=== PATIENT | female | born 1985 | race Caucasian/White ===

== ENCOUNTER 2018-01-11 19:58 | Emergency (ER) | payer SELFPAY ==
[~2018-01-11] VITALS: Ht 157.5 cm; Wt 70.5 kg
[2018-01-11 20:28] VITALS: BP 178/98; PULSE 110; RESP 20; TEMP 102.6; O2SAT 98
[2018-01-11] MEDS ORDERED: VENTAER INH (20:45)
[2018-01-11] MEDS ORDERED: SODIUM CHLORIDE 0.9% FLUSH 10 ML FLUSH IVF PRN (20:45)
[2018-01-11] MEDS ORDERED: SODIUM CHLOR 0.9% 1000 ML INJ 1,000 ML IV ONE (20:45)
[2018-01-11] MEDS ORDERED: ACETAMINOPHEN 325 MG TAB PO ONE (20:45)
--- NOTE | 2018-01-11 21:03 | RADRPT ---
EXAM DATE/TIME: 01/11/2018 20:56 [facility] COMPARISON: No previous studies available for comparison. INDICATIONS : Chest pain. MEDICAL HISTORY : Asthma SURGICAL HISTORY : None. ENCOUNTER: Initial ACUITY: 3 days PAIN SCORE: 10/10 LOCATION: Bilateral chest FINDINGS: PA and lateral views of the chest demonstrate the lungs to be symmetrically aerated without evidence of mass, infiltrate or effusion. The cardiomediastinal contours are unremarkable. Osseous structure s are intact. CONCLUSION: No evidence of acute cardiopulmonary disease. Alpesh Aranda MD on January 11, 2018 at 21:00 Board Certified Radiologist. This report was verified electronically.
--- NOTE | 2018-01-11 21:13 | PD ---
HPI Chief Complaint: Cold / Flu Symptoms Time Seen by Provider: 20:39 Travel History International Travel<30 days: No Contact w/Intl Traveler<30days: No Traveled to known affect area: No History of Present Illness HPI Patient is a 32-year-old female presents emergency department with a 2 day history of cough congestion body aches nausea without vomiting. Patient also is noted to be febrile here in the emergency department. She states her uncle is been sick with similar symptoms but she has not had a lot of contact with him. States symptoms have provoked her asthma as well and she has been taking her uncles nebulizer as well as her inhaler. Denies any chest pain denies any sputum production, endorses a mild headache. She states symptoms are moderate, over the past 2 days, constant, gradually worsening, associated signs and symptoms as above PFSH Past Medical History Hx Anticoagulant Therapy: Yes (ASA) Asthma: Yes Medical other: Yes (DVT LLE ) Respiratory: Yes (Asthma) Tetanus Vaccination: < 5 Years Influenza Vaccination: No ?: Not LMP: 01/11 Past Surgical History Appendectomy: Yes Other Surgery: Yes (Facial surgery) Social History Alcohol Use: Yes (rarely) Tobacco Use: Yes (1/2 PPD) Substance Use: No Allergies-Medications (Allergen,Severity, Reaction): Coded Allergies: No Known Drug Allergies (Verified Allergy, Unknown, 01/11/18) Reported Meds & Prescriptions Reported Meds & Active Scripts Active Zofran (Ondansetron HCl) 4 Mg Tab 4 Mg PO Q6HR PRN Reported Ventolin Hfa 18 GM Inh (Albuterol Sulfate) 90 Mcg/Act Aer 2 Puff INH Q4-6H PRN Review of Systems Except as stated in HPI: all other systems reviewed are Neg Physical Exam Narrative GENERAL: Well-developed well-nourished no obvious distress. Patient appears nontoxic. SKIN: Skin is clammy, euthermic to touch. HEAD: Atraumatic. Normocephalic. EYES: Pupils equal and round. No scleral icterus. No injection or drainage. ENT: No nasal bleeding or discharge. Mucous membranes pink and moist. TMs clear bilaterally, oropharynx mildly erythematous but no edema. Uvula midline NECK: Trachea midline. No JVD. CARDIOVASCULAR: Regular rhythm with mild tachycardia. No murmur appreciated. RESPIRATORY: No accessory muscle use. Clear to auscultation. Breath sounds equal bilaterally. GASTROINTESTINAL: Abdomen soft, non-tender, nondistended. Hepatic and splenic margins not palpable. MUSCULOSKELETAL: No obvious deformities. No clubbing. No cyanosis. No edema. NEUROLOGICAL: Awake and alert. No obvious cranial nerve deficits. Motor grossly within normal limits. Normal speech. PSYCHIATRIC: Appropriate mood and affect; insight and judgment normal. Data Data Last Documented VS Vital Signs Date Time Temp Pulse Resp B/P (MAP) Pulse Ox O2 Delivery O2 Flow Rate FiO2 01/11/18 21:50 99.8 93 18 136/62 (86) 96 Room Air Orders Orders Basic Metabolic Panel (Bmp) (01/11/18 20:44) Complete Blood Count With Diff (01/11/18 20:44) Sodium Chloride 0.9% Flush (Ns Flush) (01/11/18 20:45) Chest, Pa & Lat (01/11/18 20:44) Ed Urine Pregnancytest Poc (01/11/18 20:44) Influenzae A/B Antigen (01/11/18 20:44) Sodium Chlor 0.9% 1000 Ml Inj (Ns 1000 M (01/11/18 20:45) Acetaminophen (Tylenol) (01/11/18 20:45) Ed Discharge Order (01/11/18 23:26) Labs Laboratory Tests Test 01/11/18 21:10 White Blood Count 6.0 TH/MM3 Red Blood Count 3.93 MIL/MM3 Hemoglobin 14.0 GM/DL Hematocrit 39.3 % Mean Corpuscular Volume 100.0 FL Mean Corpuscular Hemoglobin 35.5 PG Mean Corpuscular Hemoglobin Concent 35.5 % Red Cell Distribution Width 11.7 % Platelet Count 116 TH/MM3 Mean Platelet Volume 10.6 FL Neutrophils (%) (Auto) 76.6 % Lymphocytes (%) (Auto) 12.0 % Monocytes (%) (Auto) 10.5 % Eosinophils (%) (Auto) 0.5 % Basophils (%) (Auto) 0.4 % Neutrophils # (Auto) 4.6 TH/MM3 Lymphocytes # (Auto) 0.7 TH/MM3 Monocytes # (Auto) 0.6 TH/MM3 Eosinophils # (Auto) 0.0 TH/MM3 Basophils # (Auto) 0.0 TH/MM3 CBC Comment DIFF FINAL Differential Comment Blood Urea Nitrogen 4 MG/DL Creatinine 0.70 MG/DL Random Glucose 106 MG/DL Calcium Level 8.9 MG/DL Sodium Level 135 MEQ/L Potassium Level 3.3 MEQ/L Chloride Level 103 MEQ/L Carbon Dioxide Level 22.4 MEQ/L Anion Gap 10 MEQ/L Estimat Glomerular Filtration Rate 98 ML/MIN [facility] Medical Decision Making Medical Screen Exam Complete: Yes Emergency Medical Condition: Yes Differential Diagnosis Influenza, pneumonia, asthma exacerbation, viral syndrome. Narrative Course Patient room to the emergency department, defervesced quite well with fluids and Tylenol. Also given Zofran. She is feeling much better. Basic labs are reassuring, UPT negative, chest x-ray negative. Patient did take her inhaler once in the emergency department but her lungs remained clear. She did not alert myself in her nursing to this until my repeat evaluation. She appears much improved. Discussed with her signs and symptoms that should prompt revisit to the ER, symptomatic management of her fever at home, discussed follow -up with a primary care physician Diagnosis Primary Impression: Fever Additional Impression: URI (upper respiratory infection) Med/Other Pt SpecificInfo: Prescription(s) given Scripts Ondansetron (Zofran) 4 Mg Tab 4 MG PO Q6HR Y for NAUSEA OR VOMITING, #20 TAB 0 Refills Prov: Edi Veloz MD 01/11/18 Disposition: 01 DISCHARGE HOME Condition: Stable Edi Veloz MD Jan 11, 2018 21:13
[2018-01-11 21:28] LABS: AUTOMATED NEUTROPHIL # 4.6 TH/MM3 (1.8-7.7); BASOPHIL % 0.4 % (0.0-2.0); EOSINOPHIL % 0.5 % (0.0-4.0); HEMATOCRIT 39.3 % (35.0-46.0); LYMPHOCYTE # 0.7 TH/MM3 (1.0-4.8); MEAN CORPUSCULAR HEMOGLOBIN 35.5 PG (27.0-34.0); MEAN CORPUSCULAR HGB CONC 35.5 % (32.0-36.0); MEAN PLATELET VOLUME 10.6 FL (7.0-11.0); MONO % 10.5 % (0.0-8.0); MONOCYTE # 0.6 TH/MM3 (0-0.9); NEUT % 76.6 % (16.0-70.0); PLATELET COUNT 116 TH/MM3 (150-450); RED BLOOD COUNT 3.93 MIL/MM3 (4.00-5.30); RED CELL DISTRIBUTION WIDTH 11.7 % (11.6-17.2)
[2018-01-11 21:50] VITALS: BP 136/62; PULSE 93; RESP 18; TEMP 99.8; O2SAT 96
[2018-01-11 21:50] LABS: BICARBONATE 22.4 MEQ/L (21.0-32.0); CALCIUM 8.9 MG/DL (8.5-10.1); CREATININE 0.7 MG/DL (0.50-1.00)
[2018-01-11] MEDS ORDERED: ZOFR4TAB PO (23:30)
== END 2018-01-12 01:40 | disposition home or self-care (01) ==
LOC: NEPD 19:58
DX: J06.9 Acute upper respiratory infection, unspecified (principal); R51 Headache; J45.909 Unspecified asthma, uncomplicated; F17.200 Nicotine dependence, unspecified, uncomplicated; Z86.718 Personal history of other venous thrombosis and embolism; Z79.51 Long term (current) use of inhaled steroids
CPT/HCPCS: 71046; 80048; 84703; 85025; 87804; 96360; 99284; J7030

== ENCOUNTER 2018-01-14 01:35 | Inpatient (IN) | payer SELFPAY ==
[2018-01-14] VITALS (9 sets, daily range): BP systolic 132–172; BP diastolic 58–83; PULSE 78–115; RESP 17–20; TEMP 97.9–100.6; O2SAT 95–98
[~2018-01-14] VITALS: Ht 157.5 cm; Wt 70.0 kg
[~2018-01-14 01:35] MED LIST: VENTAER INH; ZOFR4TAB PO
[2018-01-14] MEDS ORDERED: SODIUM CHLOR 0.9% 1000 ML INJ 1,000 ML IV SCH (02:25)
[2018-01-14] MEDS ORDERED: SODIUM CHLORIDE 0.9% FLUSH 10 ML FLUSH IV FLUSH PRN ×2 (02:30→04:30)
[2018-01-14] MEDS ORDERED: methylPREDNISolone SOD SUCC 125 MG/2 ML VIAL IV PUSH ONE (02:30)
[2018-01-14] MEDS ORDERED: diphenhydrAMINE HCL 50 MG/ML VIAL IV PUSH ONE (02:30)
[2018-01-14] MEDS ORDERED: FAMOTIDINE 20 MG/2 ML VIAL IV PUSH ONE (02:30)
[2018-01-14] MEDS ORDERED: ONDANSETRON HCL 4 MG/2 ML VIAL IVP ONE (02:30)
[2018-01-14] MEDS ORDERED: MORPHINE SULFATE 4 MG/ML INJ IV PUSH ONE (02:30)
[2018-01-14] MEDS ORDERED: IOHEXOL 350 MG/ML 10 ML VIAL (for RAD DIAG) IVCONTRAST ONE (02:50)
[2018-01-14 02:59] LABS: AUTOMATED NEUTROPHIL # 5.3 TH/MM3 (1.8-7.7); BASOPHIL % 0.2 % (0.0-2.0); EOSINOPHIL % 0.6 % (0.0-4.0); HEMATOCRIT 38.1 % (35.0-46.0); HEMOGLOBIN 13.5 GM/DL (11.6-15.3); LYMPH % 10.7 % (9.0-44.0); LYMPHOCYTE # 0.7 TH/MM3 (1.0-4.8); MEAN CORPUSCULAR HEMOGLOBIN 35.1 PG (27.0-34.0); MEAN CORPUSCULAR HGB CONC 35.5 % (32.0-36.0); MEAN PLATELET VOLUME 10.5 FL (7.0-11.0); MONOCYTE # 0.7 TH/MM3 (0-0.9); NEUT % 78.5 % (16.0-70.0); PLATELET COUNT 138 TH/MM3 (150-450); RED BLOOD COUNT 3.85 MIL/MM3 (4.00-5.30); WHITE BLOOD COUNT 6.7 TH/MM3 (4.0-11.0)
[2018-01-14] MEDS ORDERED: RESP: ALBUTEROL 2.5 MG/IPRATROPIUM 0.5 MG NEB (SCH) NEB ONE ×2 (03:00→03:15)
--- NOTE | 2018-01-14 03:03 | RADRPT ---
EXAM DATE/TIME: 01/14/2018 02:47 [facility] COMPARISON: CHEST PA & LAT, January 11, 2018, 20:56. INDICATIONS : Right upper quadrant pain and fever. IV CONTRAST: 97 cc Omnipaque 350 (iohexol) IV ORAL CONTRAST: No oral contrast ingested. RADIATION DOSE: 7.16 CTDIvol (mGy) MEDICAL HISTORY : Asthma SURGICAL HISTORY : Appendectomy. ENCOUNTER: Initial ACUITY: 2 days PAIN SCALE: 6/10 LOCATION: Right upper quadrant abdomen TECHNIQUE: Volumetric scanning of the abdomen and pelvis was performed. Using automated exposure control and ad justment of the mA and/or kV according to patient size, radiation dose was kept as low as reasonably achievable to obtain optimal diagnostic quality images. DICOM format image data is available electro nically for review and comparison. FINDINGS: LOWER LUNGS: Dense consolidation in the medial right lower lung with some peripheral air bronchograms and opacity measuring up to 5.5 cm. The opacity tracks along the right heart border and does come in contact wit h the medial right hemidiaphragm. Patchy areas of non-consolidative infiltrate in the lateral left l ower lung. LIVER: Homogeneous density without lesion. There is no dilation of the biliary tree. No calcified gallston es. SPLEEN: Normal size without lesion. PANCREAS: Within normal limits. KIDNEYS: Normal in size and shape. There is no mass, stone or hydronephrosis. ADRENAL GLANDS: Within normal limits. VASCULAR: There is no aortic aneurysm. BOWEL/MESENTERY: No dilated loops of small or large bowel. No evidence of free fluid. ABDOMINAL WALL: Within normal limits. RETROPERITONEUM: There is no lymphadenopathy. BLADDER: No wall thickening or mass. REPRODUCTIVE: Anteverted uterus. INGUINAL: There is no lymphadenopathy or hernia. MUSCULOSKELETAL: Possible pars defect on the right side of L5. CONCLUSION: 1. Dense consolidation in the medial lower right lung in contact with the medial hemidiaphragm. 2. Patchy areas of non-consolidative infiltrate in the left lower lobe. 3. 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 Lowell Valdes MD on January 14, 2018 at 2:56 Board Certified Radiologist. This report was verified electronically.
[2018-01-14] MEDS ORDERED: AZITHROMYCIN INJ 500 MG in SODIUM CHLOR 0.9% 250 ML INJ 250 ML IV ONE (03:15)
[2018-01-14 03:22] LABS: ALKALINE PHOSPHATASE 82 U/L (45-117); ALT (GPT) 25 U/L (10-53); TOTAL BILIRUBIN ADULT 0.8 MG/DL (0.2-1.0); TOTAL PROTEIN 7.7 GM/DL (6.4-8.2)
--- NOTE | 2018-01-14 03:23 | PD ---
HPI Chief Complaint: Abdominal Pain Time Seen by Provider: 02:16 Travel History International Travel<30 days: No Contact w/Intl Traveler<30days: No Traveled to known affect area: No History of Present Illness HPI The patient is a 32-year-old -[place] female who presents the emergency department with a 2 day history of cough and cold symptoms. The patient was seen in the emergency department several days ago where she had a chest x-ray were performed which was negative and an influenza screen which was negative. The patient was diagnosed with a viral syndrome at that time he was discharged home on Zofran. However, the patient continues to have a productive cough producing green sputum, she now notes increase in nausea and right upper quadrant abdominal pain. She does no vomiting as well as productive cough producing green sputum and occasionally blood within the sputum. She had one episode of diarrhea which has resolved. She denies any lower abdominal pain. Symptoms are moderate. She does note subjective fevers chills, sweats, myalgias , and hives. She denies any change in medications or detergents recently. States when she has the hives she has perioral numbness and tingling. The patient does have a history of reactive airway disease and is requesting duo nebs. PFSH Past Medical History Hx Anticoagulant Therapy: Yes (ASA) Asthma: Yes Diminished Hearing: No Respiratory: Yes (Asthma) Tetanus Vaccination: Unknown Influenza Vaccination: No ?: Not LMP: 01/13/2018 Past Surgical History Appendectomy: Yes Other Surgery: Yes (Facial surgery) Social History Alcohol Use: Yes (rarely) Tobacco Use: No (pt states no since been sick) Substance Use: No Allergies-Medications (Allergen,Severity, Reaction): Coded Allergies: No Known Drug Allergies (Verified Allergy, Unknown, 01/11/18) Reported Meds & Prescriptions Reported Meds & Active Scripts Active Zofran (Ondansetron HCl) 4 Mg Tab 4 Mg PO Q6HR PRN Reported Ventolin Hfa 18 GM Inh (Albuterol Sulfate) 90 Mcg/Act Aer 2 Puff INH Q4-6H PRN Review of Systems Except as stated in HPI: all other systems reviewed are Neg General / Constitutional: Positive: Fever, Chills Cardiovascular: No: Chest Pain or Discomfort Respiratory: Positive: Cough, Shortness of Breath Gastrointestinal: Positive: Nausea, Vomiting, Diarrhea, Abdominal Pain Genitourinary: No: Dysuria Skin: Positive Hives Physical Exam Narrative GENERAL: Awake, alert, pleasant 32-year-old female who appears her stated age and is in no acute respiratory distress. SKIN: Focused skin assessment warm/dry. HEAD: Atraumatic. Normocephalic. EYES: Pupils equal and round. No scleral icterus. No injection or drainage. ENT: No nasal bleeding or discharge. Slightly dry mucous membranes. NECK: Trachea midline. No JVD. CARDIOVASCULAR: Regular, tachycardic with a heart rate 115. RESPIRATORY: No accessory muscle use. Few scattered rhonchi in the right base. GASTROINTESTINAL: Abdomen soft, tender to palpation right upper quadrant. No guarding rigidity. MUSCULOSKELETAL: No obvious deformities. No clubbing. No cyanosis. No edema. NEUROLOGICAL: Awake and alert. No obvious cranial nerve deficits. Motor grossly within normal limits. Normal speech. PSYCHIATRIC: Appropriate mood and affect; insight and judgment normal. Data Data Last Documented VS Vital Signs Date Time Temp Pulse Resp B/P (MAP) Pulse Ox O2 Delivery O2 Flow Rate FiO2 01/14/18 01:58 100.6 115 18 172/83 (112) 96 Orders Orders Complete Blood Count With Diff (01/14/18 02:25) Comprehensive Metabolic Panel (01/14/18 02:25) Lipase (01/14/18 02:25) Lactic Acid (01/14/18 02:25) Urinalysis - C+S If Indicated (01/14/18 02:25) Ct Abd/Pel W Iv Contrast(Rout) (01/14/18 02:25) Iv Access Insert/Monitor (01/14/18 02:25) Ecg Monitoring (01/14/18 02:25) Oximetry (01/14/18 02:25) Morphine Inj (Morphine Inj) (01/14/18 02:30) Ondansetron Inj (Zofran Inj) (01/14/18 02:30) Sodium Chlor 0.9% 1000 Ml Inj (Ns 1000 M (01/14/18 02:25) Sodium Chloride 0.9% Flush (Ns Flush) (01/14/18 02:30) Famotidine Inj (Pepcid Inj) (01/14/18 02:30) Methylprednisolone So Succ Inj (Solumedr (01/14/18 02:30) Diphenhydramine Inj (Benadryl Inj) (01/14/18 02:30) Iohexol 350 Inj (Omnipaque 350 Inj) (01/14/18 02:50) Albuterol-Ipratropium Neb (Duoneb Neb) (01/14/18 03:00) Albuterol-Ipratropium Neb (Duoneb Neb) (01/14/18 03:15) Azithromycin Inj (Zithromax Inj) (01/14/18 03:15) Potassium Chloride (Kcl) (01/14/18 04:15) Admit Order (Ed Use Only) (01/14/18 04:20) Labs Laboratory Tests Test 01/14/18 02:29 01/14/18 02:42 White Blood Count 6.7 TH/MM3 Red Blood Count 3.85 MIL/MM3 Hemoglobin 13.5 GM/DL Hematocrit 38.1 % Mean Corpuscular Volume 99.0 FL Mean Corpuscular Hemoglobin 35.1 PG Mean Corpuscular Hemoglobin Concent 35.5 % Red Cell Distribution Width 12.0 % Platelet Count 138 TH/MM3 Mean Platelet Volume 10.5 FL Neutrophils (%) (Auto) 78.5 % Lymphocytes (%) (Auto) 10.7 % Monocytes (%) (Auto) 10.0 % Eosinophils (%) (Auto) 0.6 % Basophils (%) (Auto) 0.2 % Neutrophils # (Auto) 5.3 TH/MM3 Lymphocytes # (Auto) 0.7 TH/MM3 Monocytes # (Auto) 0.7 TH/MM3 Eosinophils # (Auto) 0.0 TH/MM3 Basophils # (Auto) 0.0 TH/MM3 CBC Comment DIFF FINAL Differential Comment Blood Urea Nitrogen 2 MG/DL Creatinine 0.58 MG/DL Random Glucose 110 MG/DL Total Protein 7.7 GM/DL Albumin 3.2 GM/DL Calcium Level 8.7 MG/DL Alkaline Phosphatase 82 U/L Aspartate Amino Transf (AST/SGOT) 25 U/L Alanine Aminotransferase (ALT/SGPT) 25 U/L Total Bilirubin 0.8 MG/DL Sodium Level 138 MEQ/L Potassium Level 3.0 MEQ/L Chloride Level 102 MEQ/L Carbon Dioxide Level 24.8 MEQ/L Anion Gap 11 MEQ/L Estimat Glomerular Filtration Rate 122 ML/MIN Lipase 75 U/L Lactic Acid Level 1.2 mmol/L MDM Medical Decision Making Medical Screen Exam Complete: Yes Emergency Medical Condition: Yes Medical Record Reviewed: Yes Interpretation(s) CT the abdomen and pelvis reveals dense consolidation in the medial lower right lung and contact with the medial hemidiaphragm. Patchy areas of non- consolidative infiltrate in the left lower lobe. 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 Laboratory Tests Test 01/14/18 02:29 01/14/18 02:42 White Blood Count 6.7 TH/MM3 Red Blood Count 3.85 MIL/MM3 Hemoglobin 13.5 GM/DL Hematocrit 38.1 % Mean Corpuscular Volume 99.0 FL Mean Corpuscular Hemoglobin 35.1 PG Mean Corpuscular Hemoglobin Concent 35.5 % Red Cell Distribution Width 12.0 % Platelet Count 138 TH/MM3 Mean Platelet Volume 10.5 FL Neutrophils (%) (Auto) 78.5 % Lymphocytes (%) (Auto) 10.7 % Monocytes (%) (Auto) 10.0 % Eosinophils (%) (Auto) 0.6 % Basophils (%) (Auto) 0.2 % Neutrophils # (Auto) 5.3 TH/MM3 Lymphocytes # (Auto) 0.7 TH/MM3 Monocytes # (Auto) 0.7 TH/MM3 Eosinophils # (Auto) 0.0 TH/MM3 Basophils # (Auto) 0.0 TH/MM3 CBC Comment DIFF FINAL Differential Comment Blood Urea Nitrogen 2 MG/DL Creatinine 0.58 MG/DL Random Glucose 110 MG/DL Total Protein 7.7 GM/DL Albumin 3.2 GM/DL Calcium Level 8.7 MG/DL Alkaline Phosphatase 82 U/L Aspartate Amino Transf (AST/SGOT) 25 U/L Alanine Aminotransferase (ALT/SGPT) 25 U/L Total Bilirubin 0.8 MG/DL Sodium Level 138 MEQ/L Potassium Level 3.0 MEQ/L Chloride Level 102 MEQ/L Carbon Dioxide Level 24.8 MEQ/L Anion Gap 11 MEQ/L Estimat Glomerular Filtration Rate 122 ML/MIN Lipase 75 U/L Lactic Acid Level 1.2 mmol/L Differential Diagnosis Differential diagnosis includes influenza, viral syndrome, pneumonia, bronchitis , cholecystitis, gastroenteritis. Narrative Course IV was established, labs are drawn and sent, and the patient was placed on cardiac telemetry monitoring and continuous pulse oximetry monitoring. I reviewed the patient's previous emergency department visit, chest x-ray was unremarkable that time a test was negative. The patient does have right upper quadrant abdominal pain, tachycardia, with nausea and vomiting. Therefore, CT the abdomen and pelvis was performed. CT the abdomen and pelvis does reveal a right lower lobe pneumonia with patchy consolidative infiltrate and left lower pneumonia. Therefore, the patient was administered several duo nebs, steroids, IV fluids, and Zithromax. The patient's white count was normal , lactic acid normal. The patient felt improvement with the DuoNeb, however, symptoms returned. She was administered 2 more duo nebs with mild relief. However, she still was tachycardic with a heart rate of 10/02/2000 20. I had a discussion with the patient regarding bilateral pneumonia and her nausea and vomiting. After discussion it was agreed the patient would be admitted for her bilateral pneumonia with nausea and vomiting for duo nebs, IV antibiotics, and IV hydration. Sepsis Criteria SIRS Criteria (2 or more): Heart rate over 90 Physician Communication Physician Communication I discussed the patient with Dr. Iqbal who agrees with admission. Diagnosis Primary Impression: Pneumonia Qualified Codes: J18.1 - Lobar pneumonia, unspecified organism Admitting Information Admitting Physician Requests: Admit Condition: Stable Octavio Calderon MD Jan 14, 2018 03:23
[2018-01-14 03:29] LABS: ALBUMIN 3.2 GM/DL (3.4-5.0); AST (GOT) 25 U/L (15-37); BICARBONATE 24.8 MEQ/L (21.0-32.0); BLOOD UREA NITROGEN 2 MG/DL (7-18); CALCIUM 8.7 MG/DL (8.5-10.1); CHLORIDE 102 MEQ/L (98-107); CREATININE 0.58 MG/DL (0.50-1.00); GLOMERULAR FILTRATION RATE 122 ML/MIN (>89); GLUCOSE,RANDOM 110 MG/DL (74-106); SODIUM (NA) 138 MEQ/L (136-145)
[2018-01-14] MEDS ORDERED: POTASSIUM CHLORIDE 20 MEQ CONTROLLED RELEASE TAB PO ONE ×2 (04:15→07:45)
[2018-01-14] MEDS ORDERED: ONDANSETRON HCL 4 MG/2 ML VIAL IVP PRN (04:30)
[2018-01-14] MEDS ORDERED: SENNOSIDES 8.6 MG TAB PO PRN (04:30)
[2018-01-14] MEDS ORDERED: BISACODYL 10 MG SUPP RECTAL PRN (04:30)
[2018-01-14] MEDS ORDERED: LACTULOSE SYRUP 20 GM/30 ML CUP PO PRN (04:30)
[2018-01-14] MEDS ORDERED: MAGNESIUM HYDROXIDE SUSP 30 ML CUP PO PRN (04:30)
[2018-01-14] MEDS ORDERED: ACETAMINOPHEN/HYDROcodone 325 MG/10 MG TAB PO PRN (04:30)
[2018-01-14] MEDS ORDERED: ACETAMINOPHEN/HYDROcodone 325 MG/5 MG TAB PO PRN (04:30)
[2018-01-14] MEDS ORDERED: ACETAMINOPHEN 325 MG TAB PO PRN (04:30)
--- NOTE | 2018-01-14 04:34 | HHI.HP ---
[facility] No Primary Care Physician Admission Diagnosis Bilateral pneumonia, nausea/vomiting Diagnoses: (1) PNA (pneumonia) Diagnosis: Principal (2) Asthma Diagnosis: Principal (3) Hypokalemia Diagnosis: Principal (4) Tobacco abuse Diagnosis: Principal Travel History International Travel<30 Days: No Contact w/Intl Traveler <30 Da: No Traveled to Known Affected Are: No History of Present Illness This is a 32-year-old female with a PMH of Asthma and Tobacco Abuse who presented to the ER with complaints of SOB in addition to productive cough w/ green-colored sputum and nausea/vomiting. Seen in ER on 01/11/18 for similar complaints, noted to have Temp 102.6, however no leukocytosis and CXR w/o acute findings, was d/c'd home w/ Zofran prn. Returns now w/ ongoing SOB and cough in addition to RUQ pain. Denies diarrhea, but reports generalized malaise and myalgias. On arrival, BP 172/83, HR 115, O2 sat 96% on RA, Temp 100.6. CBC at baseline. Chemistry unremarkable except for K+ 3.0. CT Abdomen/Pelvis with dense consolidation medial lower right lung and patchy non-consolidative infiltrate left lower lobe. S/p Solu-Medrol, DuoNeb, Rocephin/Zithro in ER w/ some improvement. Review of Systems Except as stated in HPI: all other systems reviewed are Neg ROS: 14 point review of systems otherwise negative. Past Family Social History Past Medical History PMH: Asthma and Tobacco Abuse Past Surgical History PAST SURGICAL HISTORY: Appendectomy, Facial Surgery Allergies: Coded Allergies: No Known Drug Allergies (Verified Allergy, Unknown, 01/11/18) Family History PAST FAMILY HISTORY: Reviewed. No h/o DM or CAD Social History PAST SOCIAL HISTORY: Occasional alcohol, positive for tobacco however not since she has been sick. Negative for drugs. Physical Exam Vital Signs Vital Signs Date Time Temp Pulse Resp B/P (MAP) Pulse Ox O2 Delivery O2 Flow Rate FiO2 01/14/18 01:58 100.6 115 18 172/83 (112) 96 Physical Exam PE: GENERAL: Pleasant young female in no acute distress. Mother at bedside. HEENT: PERRLA, EOMI. No scleral icterus or conjunctival pallor. No lid lag or facial droop. CARDIOVASCULAR: Regular rate and rhythm. No obvious murmurs to auscultation. No chest tenderness to palpation. RESPIRATORY: No obvious rhonchi or wheezing. Clear to auscultation. Breath sounds equal bilaterally. GASTROINTESTINAL: Abdomen soft, non-tender, nondistended. BS normal. MUSCULOSKELETAL: Extremities without clubbing, cyanosis, or edema. No obvious deformities. NEUROLOGICAL: Awake, alert and oriented x4. No focal neurologic deficits. Moving both upper and lower extremities spontaneously. Laboratory Laboratory Tests Test 01/14/18 02:29 01/14/18 02:42 White Blood Count 6.7 Red Blood Count 3.85 Hemoglobin 13.5 Hematocrit 38.1 Mean Corpuscular Volume 99.0 Mean Corpuscular Hemoglobin 35.1 Mean Corpuscular Hemoglobin Concent 35.5 Red Cell Distribution Width 12.0 Platelet Count 138 Mean Platelet Volume 10.5 Neutrophils (%) (Auto) 78.5 Lymphocytes (%) (Auto) 10.7 Monocytes (%) (Auto) 10.0 Eosinophils (%) (Auto) 0.6 Basophils (%) (Auto) 0.2 Neutrophils # (Auto) 5.3 Lymphocytes # (Auto) 0.7 Monocytes # (Auto) 0.7 Eosinophils # (Auto) 0.0 Basophils # (Auto) 0.0 CBC Comment DIFF FINAL Differential Comment Blood Urea Nitrogen 2 Creatinine 0.58 Random Glucose 110 Total Protein 7.7 Albumin 3.2 Calcium Level 8.7 Alkaline Phosphatase 82 Aspartate Amino Transf (AST/SGOT) 25 Alanine Aminotransferase (ALT/SGPT) 25 Total Bilirubin 0.8 Sodium Level 138 Potassium Level 3.0 Chloride Level 102 Carbon Dioxide Level 24.8 Anion Gap 11 Estimat Glomerular Filtration Rate 122 Lipase 75 Lactic Acid Level 1.2 Result Diagram: 01/14/1822801/14/18228 Caprini VTE Risk Assessment Caprini VTE Risk Assessment: No/Low Risk (score <= 1) Caprini Risk Assessment Model Point Value = 1 Point Value = 2 Point Value = 3 Point Value = 5 Age 41-60 Minor surgery BMI > 25 kg/m2 Swollen legs Varicose veins or History of unexplained or recurrent spontaneous Oral contraceptives or hormone replacement Sepsis (< 1 month) Serious lung disease, including pneumonia (< 1 month) Abnormal pulmonary function Acute myocardial infarction Congestive heart failure (< 1 month) History of inflammatory bowel disease Medical patient at bed rest Age 61-74 Arthroscopic surgery Major open surgery (> 45 min) Laparoscopic surgery (> 45 min) Malignancy Confined to bed (> 72 hours) Immobilizing plaster cast Central venous access Age >= 75 History of VTE Family history of VTE Factor V Leiden Prothrombin [id number] Lupus anticoagulant Anticardiolipin antibodies Elevated serum homocysteine Heparin-induced thrombocytopenia Other congenital or acquired thrombophilia Stroke (< 1 month) Elective arthroplasty Hip, pelvis, or leg fracture Acute spinal cord injury (< 1 month) Prophylaxis Regimen Total Risk Factor Score Risk Level Prophylaxis Regimen 0-1 Low Early ambulation 2 Moderate Order ONE of the following: *Sequential Compression Device (SCD) *Heparin 5000 units SQ BID 3-4 Higher Order ONE of the following medications: *Heparin 5000 units SQ TID *Enoxaparin/Lovenox 40 mg SQ daily (WT < 150 kg, CrCl > 30 mL/min) *Enoxaparin/Lovenox 30 mg SQ daily (WT < 150 kg, CrCl > 10-29 mL/min) *Enoxaparin/Lovenox 30 mg SQ BID (WT < 150 kg, CrCl > 30 mL/min) AND/OR *Sequential Compression Device (SCD) 5 or more Highest Order ONE of the following medications: *Heparin 5000 units SQ TID (Preferred with Epidurals) *Enoxaparin/Lovenox 40 mg SQ daily (WT < 150 kg, CrCl > 30 mL/min) *Enoxaparin/Lovenox 30 mg SQ daily (WT < 150 kg, CrCl > 10-29 mL/min) *Enoxaparin/Lovenox 30 mg SQ BID (WT < 150 kg, CrCl > 30 mL/min) AND *Sequential Compression Device (SCD) Assessment and Plan Problem List: (1) PNA (pneumonia) ICD Code: J18.9 - Pneumonia, unspecified organism (2) Asthma ICD Code: J45.909 - Unspecified asthma, uncomplicated (3) Hypokalemia ICD Code: E87.6 - Hypokalemia (4) Tobacco abuse ICD Code: Z72.0 - Tobacco use Assessment and Plan A/P: 1. PNA: +productive cough w/ green-colored sputum, congestion, CT Abd/Pelvis w / dense consolidation lower right lung and patchy infiltrate LLL, images reviewed by me. S/p Rocephin/Zithro in ER, will continue w/ IV Abx. Check Sputum Culture 2. Asthma: w/ Acute Exacerbation. Severe. +SOB/wheezing on arrival, minimal improvement w/ home nebulizers, second ER visit for same, continue w/ Solu- Medrol, Albuterol q4h and q2h prn, Symbicort, Mucinex. 3. Hypokalemia: K+ 3.0, s/p replacement, will recheck labs in am, replace as needed. 4. Tobacco Abuse: quit since sick, NicoDerm prn if needed for withdrawal. 5. DVT Prophylaxis: SCD/Teds 6. Social work for d/c planning as needed. 7. Case discussed w/ ER physician at length, labs/records/imaging reviewed by me. Physician Certification 2 Midnight Certification Type: Admission for Inpatient Services Order for Inpatient Services The services are ordered in accordance with Medicare regulations or non- Medicare payer requirements, as applicable. In the case of services not specified as inpatient-only, they are appropriately provided as inpatient services in accordance with the 2-midnight benchmark. Estimated LOS (days): 2 days is the estimated time the patient will need to remain in the hospital, assuming treatment plan goals are met and no additional complications. Post-Hospital Plan: Not yet determined So Iqbal MD Jan 14, 2018 04:34
[2018-01-14] MEDS ORDERED: methylPREDNISolone SOD SUCC 40 MG/1 ML VIAL IV PUSH SCH (06:00)
--- NOTE | 2018-01-14 07:42 | HHI.PR ---
Subjective Remarks F/U PNA and asthma exac. States she is improving but still coughing. Agrees with HIV testing patient has been counseled discussed with nursing Objective Vitals Vital Signs Date Time Temp Pulse Resp B/P (MAP) Pulse Ox O2 Delivery O2 Flow Rate FiO2 01/14/18 05:31 98.7 113 18 157/71 (99) 95 01/14/18 05:12 96 01/14/18 01:58 100.6 115 18 172/83 (112) 96 I/O 01/13/18 01/13/18 01/13/18 01/14/18 01/14/18 01/14/18 07:00 15:00 23:00 07:00 15:00 23:00 Intake Total 1370 ml Balance 1370 ml Intake Oral 120 ml IV Total 1250 ml # Voids 1 # Bowel Movements 0 Result Diagram: 01/14/1822801/14/18228 Imaging Last Impressions Abdomen/Pelvis CT 01/14/18224 Signed Impressions: Service Date/Time: Sunday, January 14, 2018 02:47 - CONCLUSION: 1. Dense consolidation in the medial lower right lung in contact with the medial hemidiaphragm. 2. Patchy areas of non-consolidative infiltrate in the left lower lobe. 3. 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 Lowell Valdes MD Objective Remarks GENERAL: Pleasant young female in no acute distress. CARDIOVASCULAR: Regular rate and rhythm. No obvious murmurs to auscultation. No chest tenderness to palpation. RESPIRATORY: No obvious rhonchi or wheezing. Clear to auscultation. Breath sounds equal bilaterally. GASTROINTESTINAL: Abdomen soft, non-tender, nondistended. BS normal. MUSCULOSKELETAL: Extremities without clubbing, cyanosis, or edema. No obvious deformities. NEUROLOGICAL: Awake, alert and oriented x4. No focal neurologic deficits. Moving both upper and lower extremities spontaneously. Procedures none A/P Problem List: (1) PNA (pneumonia) ICD Code: J18.9 - Pneumonia, unspecified organism (2) Asthma ICD Code: J45.909 - Unspecified asthma, uncomplicated (3) Hypokalemia ICD Code: E87.6 - Hypokalemia (4) Tobacco abuse ICD Code: Z72.0 - Tobacco use Assessment and Plan 1. PNA with possible sepsis: +productive cough w/ green-colored sputum, congestion, CT Abd/Pelvis w/ dense consolidation lower right lung and patchy infiltrate LLL, images reviewed by me. S/p Rocephin/Zithro in ER, will continue w/ IV Abx. Check Sputum and blood Culture. HIV testing 2. Asthma: w/ Acute Exacerbation. Severe. +SOB/wheezing on arrival, minimal improvement w/ home nebulizers, second ER visit for same, Albuterol q4h and q2h prn, Symbicort, Mucinex. Improved switch to p.o. 3. Hypokalemia: K+ 3.0, s/p replacement, will recheck labs in am, replace as needed. Check Mg 4. Tobacco Abuse: quit since sick, NicoDerm prn if needed for withdrawal. 5. DVT Prophylaxis: SCD/Teds Discharge Planning Discharge in 1-2 days Emilio Douglass MD Jan 14, 2018 07:42
[2018-01-14] MEDS: DOCUSATE SODIUM 50 MG/SENNA 8.6 MG TAB PO SCH ×2 (08:19→21:25)
[2018-01-14] MEDS: SODIUM CHLORIDE 0.9% FLUSH 10 ML FLUSH IV FLUSH SCH ×2 (08:29→21:24)
[2018-01-14] MEDS: RESP: ALBUTEROL 2.5 MG/3 ML NEB (SCH) NEB ×4 (08:31→20:00)
[2018-01-14] MEDS: BUDESONIDE-FORMOTEROL 160/4.5 MCG INHALER INH SCH ×2 (08:41→21:24)
[2018-01-14 08:54] LABS: BILIRUBIN, URINE NEG (NEG); BLOOD, URINE LARGE (NEG); GLUCOSE,URINE TRACE mg/dL (NEG); KETONE, URINE 10 mg/dL (NEG); NITRITE,URINE NEG (NEG); PH, URINE 6.5 (5.0-8.5); SQUAMOUS EPITHELIAL CELL URINE <1 /hpf (0-5); URINE COLOR LIGHT-YELLOW (YELLW/STRAW); URINE LEUKOCYTE ESTERASE NEG (NEG)
[2018-01-14] MEDS: predniSONE 20 MG TAB PO SCH (12:51)
[2018-01-14] MEDS ORDERED: CEFU1TAB18 PO (16:01)
[2018-01-14] MEDS ORDERED: Budeson-Formot 160-4.5 Mcg Inh INH (16:01)
[2018-01-14] MEDS ORDERED: ZITH250T PO (16:01)
[2018-01-14] MEDS ORDERED: PRED20 PO (16:01)
--- NOTE | 2018-01-14 16:02 | HHI.DCPOC ---
Discharge Care Plan Diagnosis: (1) PNA (pneumonia) (2) Asthma Your Health Problems Are: Difficulty with ADL Exercise Tolerance Goals to Promote Your Health * To prevent worsening of your condition and complications * To maintain your health at the optimal level Directions to Meet Your Goals Take your medications as prescribed Follow your dietary instruction Follow activity as directed Keep your appointments as scheduled Take your immunizations and boosters as scheduled If your symptoms worsen call your PCP, if no PCP go to Urgent Care Center or Emergency Room Smoking is Dangerous to Your Health. Avoid second hand smoke Call the 24-hour hour crisis hotline for domestic abuse at Emilio Douglass MD Jan 14, 2018 16:02
[2018-01-14] MEDS: cefTRIAXone INJ 1,000 MG in SODIUM CHLORIDE 0.9% INJ 100 ML IV SCH (21:25)
[2018-01-14] MEDS: AZITHROMYCIN INJ 500 MG in SODIUM CHLOR 0.9% 250 ML INJ 250 ML IV SCH (22:31)
[2018-01-15] VITALS (7 sets, daily range): BP systolic 121–148; BP diastolic 54–79; PULSE 75–90; RESP 16–18; TEMP 97.6–98.3; O2SAT 96–98
[2018-01-15] MEDS: RESP: ALBUTEROL 2.5 MG/3 ML NEB (SCH) NEB ×4 (07:48→20:09)
[2018-01-15] MEDS: BUDESONIDE-FORMOTEROL 160/4.5 MCG INHALER INH SCH ×2 (09:05→22:06)
[2018-01-15] MEDS: predniSONE 20 MG TAB PO SCH (09:05)
[2018-01-15] MEDS: DOCUSATE SODIUM 50 MG/SENNA 8.6 MG TAB PO SCH ×2 (09:05→22:05)
[2018-01-15] MEDS: SODIUM CHLORIDE 0.9% FLUSH 10 ML FLUSH IV FLUSH SCH ×2 (09:06→22:04)
[2018-01-15 09:34] LABS: ALBUMIN 2.7 GM/DL (3.4-5.0); AST (GOT) 31 U/L (15-37); BICARBONATE 22.4 MEQ/L (21.0-32.0); BLOOD UREA NITROGEN 7 MG/DL (7-18); CALCIUM 9.1 MG/DL (8.5-10.1); CHLORIDE 112 MEQ/L (98-107); CREATININE 0.52 MG/DL (0.50-1.00); GLOMERULAR FILTRATION RATE 138 ML/MIN (>89); GLUCOSE,RANDOM 96 MG/DL (74-106); SODIUM (NA) 144 MEQ/L (136-145)
[2018-01-15 09:38] LABS: ALKALINE PHOSPHATASE 77 U/L (45-117); ALT (GPT) 35 U/L (10-53); TOTAL BILIRUBIN ADULT 0.4 MG/DL (0.2-1.0)
--- NOTE | 2018-01-15 12:43 | HHI.PR ---
Subjective Remarks This is a 32-year-old female with a PMH of Asthma and Tobacco Abuse who presented to the ER with complaints of SOB in addition to productive cough w/ green-colored sputum and nausea/vomiting. Seen in ER on 01/11/18 for similar complaints, noted to have Temp 102.6, however no leukocytosis and CXR w/o acute findings, was d/c'd home w/ Zofran prn. Returns now w/ ongoing SOB and cough in addition to RUQ pain. Denies diarrhea, but reports generalized malaise and myalgias. On arrival, BP 172/83, HR 115, O2 sat 96% on RA, Temp 100.6. CBC at baseline. Chemistry unremarkable except for K+ 3.0. CT Abdomen/Pelvis with dense consolidation medial lower right lung and patchy non-consolidative infiltrate left lower lobe. S/p Solu-Medrol, DuoNeb, Rocephin/Zithro in ER w/ some improvement. 01-14 F/U PNA and asthma exac. States she is improving but still coughing. Agrees with HIV testing patient has been counseled discussed with nursing 01-15 CONTINUE ANTIBIOTICS AND BREATHING TREATMENTS HIV test is negative A.m. labs Replace potassium and magnesium Discussed with patient and RN and case management Objective Vitals Vital Signs Date Time Temp Pulse Resp B/P (MAP) Pulse Ox O2 Delivery O2 Flow Rate FiO2 01/15/18 11:35 98.0 85 18 122/73 (89) 96 01/15/18 07:35 97.7 80 18 121/62 (81) 97 01/15/18 03:50 98.3 75 16 141/79 (99) 98 01/15/18 00:54 98.3 90 16 148/79 (102) 98 01/15/18 00:00 Room Air 01/14/18 21:28 98.3 79 17 144/65 (91) 96 01/14/18 21:25 Room Air 01/14/18 20:00 98 21 01/14/18 16:00 98.3 78 20 143/62 (89) 95 I/O 01/14/18 01/14/18 01/14/18 01/15/18 01/15/18 01/15/18 07:00 15:00 23:00 07:00 15:00 23:00 Intake Total 1370 ml 100 ml 250 ml Output Total 200 ml Balance 1370 ml -200 ml 100 ml 250 ml Intake Oral 120 ml IV Total 1250 ml 100 ml 250 ml Output Urine Total 200 ml # Voids 1 2 # Bowel Movements 0 0 Result Diagram: 01/14/18 0229 01/15/18 0748 Other Results Laboratory Tests Test 01/14/18 02:29 01/14/18 02:42 01/14/18 05:00 01/14/18 12:40 White Blood Count 6.7 TH/MM3 Red Blood Count 3.85 MIL/MM3 Hemoglobin 13.5 GM/DL Hematocrit 38.1 % Mean Corpuscular Volume 99.0 FL Mean Corpuscular Hemoglobin 35.1 PG Mean Corpuscular Hemoglobin Concent 35.5 % Red Cell Distribution Width 12.0 % Platelet Count 138 TH/MM3 Mean Platelet Volume 10.5 FL Neutrophils (%) (Auto) 78.5 % Lymphocytes (%) (Auto) 10.7 % Monocytes (%) (Auto) 10.0 % Eosinophils (%) (Auto) 0.6 % Basophils (%) (Auto) 0.2 % Neutrophils # (Auto) 5.3 TH/MM3 Lymphocytes # (Auto) 0.7 TH/MM3 Monocytes # (Auto) 0.7 TH/MM3 Eosinophils # (Auto) 0.0 TH/MM3 Basophils # (Auto) 0.0 TH/MM3 CBC Comment DIFF FINAL Differential Comment Blood Urea Nitrogen 2 MG/DL Creatinine 0.58 MG/DL Random Glucose 110 MG/DL Total Protein 7.7 GM/DL Albumin 3.2 GM/DL Calcium Level 8.7 MG/DL Alkaline Phosphatase 82 U/L Aspartate Amino Transf (AST/SGOT) 25 U/L Alanine Aminotransferase (ALT/SGPT) 25 U/L Total Bilirubin 0.8 MG/DL Sodium Level 138 MEQ/L Potassium Level 3.0 MEQ/L Chloride Level 102 MEQ/L Carbon Dioxide Level 24.8 MEQ/L Anion Gap 11 MEQ/L Estimat Glomerular Filtration Rate 122 ML/MIN Magnesium Level 1.8 MG/DL Lipase 75 U/L Lactic Acid Level 1.2 mmol/L Urine Color LIGHT-YELLOW Urine Turbidity CLEAR Urine pH 6.5 Urine Specific [place] 1.019 Urine Protein NEG mg/dL Urine Glucose (UA) TRACE mg/dL Urine Ketones 10 mg/dL Urine Occult Blood LARGE Urine Nitrite NEG Urine Bilirubin NEG Urine Urobilinogen LESS THAN 2.0 MG/DL Urine Leukocyte Esterase NEG Urine RBC 2 /hpf Urine WBC 3 /hpf Urine Squamous Epithelial Cells <1 /hpf Microscopic Urinalysis Comment CULT NOT INDICATED HIV (1&2) Ab and P24 Ag, 4th Gener NONREACTIVE Test 01/15/18 07:48 Blood Urea Nitrogen 7 MG/DL Creatinine 0.52 MG/DL Random Glucose 96 MG/DL Total Protein 7.0 GM/DL Albumin 2.7 GM/DL Calcium Level 9.1 MG/DL Alkaline Phosphatase 77 U/L Aspartate Amino Transf (AST/SGOT) 31 U/L Alanine Aminotransferase (ALT/SGPT) 35 U/L Total Bilirubin 0.4 MG/DL Sodium Level 144 MEQ/L Potassium Level 3.4 MEQ/L Chloride Level 112 MEQ/L Carbon Dioxide Level 22.4 MEQ/L Anion Gap 10 MEQ/L Estimat Glomerular Filtration Rate 138 ML/MIN Imaging Last Impressions Abdomen/Pelvis CT 01/14/18 0225 Signed Impressions: Service Date/Time: Sunday, January 14, 2018 02:47 - CONCLUSION: 1. Dense consolidation in the medial lower right lung in contact with the medial hemidiaphragm. 2. Patchy areas of non-consolidative infiltrate in the left lower lobe. 3. 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 Lowell Valdes MD Objective Remarks GENERAL: Awake alert and oriented 3 talkative and cooperative SKIN: Warm and dry. HEAD: Atraumatic. Normocephalic. EYES: Pupils equal and round. No scleral icterus. No injection or drainage. Extraocular muscles intact ENT: No nasal bleeding or discharge. Mucous membranes pink and moist. Tongue is midline NECK: Trachea midline. No JVD. Supple CARDIOVASCULAR: Regular rate and rhythm. S1-S2 no S3 or S4 RESPIRATORY: Rhonchi and wheezes throughout all lung scott breath sounds equal bilaterally. GASTROINTESTINAL: Abdomen soft, non-tender, nondistended. Hepatic and splenic margins not palpable. MUSCULOSKELETAL: Extremities without clubbing, cyanosis, or edema. No obvious deformities. NEUROLOGICAL: Awake and alert. No obvious cranial nerve deficits. Motor grossly within normal limits. Five out of 5 muscle strength in the arms and legs. Normal speech. PSYCHIATRIC: Appropriate mood and affect; insight and judgment normal. Procedures none Medications and IVs Current Medications Morphine Sulfate (Morphine Inj) 4 mg ONCE ONCE IV PUSH Last administered on 4/ 29/18at 02:57; Start 01/14/18 at 02:30; Stop 01/14/18 at 02:31; Status DC Ondansetron HCl (Zofran Inj) 4 mg ONCE ONCE IVP Last administered on at 02:57; Start 01/14/18 at 02:30; Stop 01/14/18 at 02:31; Status DC Sodium Chloride 1,000 ml @ 1,000 mls/hr Q1H IV Last administered on 01/14/18at 02:56; Start 01/14/18 at 02:25; Stop 01/14/18 at 03:24; Status DC Sodium Chloride (NS Flush) 2 ml UNSCH PRN IV FLUSH FLUSH AFTER USING IV ACCESS ; Start 01/14/18 at 02:30; Stop 01/14/18 at 04:29; Status DC Famotidine (Pepcid Inj) 20 mg ONCE ONCE IV PUSH Last administered on at 02:57; Start 01/14/18 at 02:30; Stop 01/14/18 at 02:31; Status DC Methylprednisolone Sodium Succinate (SoluMEDROL INJ) 125 mg ONCE ONCE IV PUSH Last administered on 01/14/18at 02:57; Start 01/14/18 at 02:30; Stop 01/14/18 at 02:31; Status DC Diphenhydramine HCl (Benadryl Inj) 25 mg ONCE ONCE IV PUSH Last administered on 01/14/18at 02:56; Start 01/14/18 at 02:30; Stop 01/14/18 at 02:31; Status DC Iohexol (Omnipaque 350 Inj) 97 ml STK-MED ONCE IVCONTRAST Last administered on 01/14/18at 02:50; Start 01/14/18 at 02:50; Stop 01/14/18 at 02:51; Status DC Albuterol/ Ipratropium (Duoneb Neb) 1 ampule ONCE ONCE NEB Last administered on 01/14/18at 03:00; Start 01/14/18 at 03:00; Stop 01/14/18 at 03:01; Status DC Albuterol/ Ipratropium (Duoneb Neb) 2 ampule ONCE ONCE NEB Last administered on 01/14/18at 03:58; Start 01/14/18 at 03:15; Stop 01/14/18 at 03:16; Status DC Azithromycin 500 mg/Sodium Chloride 250 ml @ 250 mls/hr ONCE ONCE IV Last administered on 01/14/18at 03:36; Start 01/14/18 at 03:15; Stop 01/14/18 at 04:14 ; Status DC Potassium Chloride (KCl) 40 meq ONCE ONCE PO Last administered on 01/14/18at 04 :33; Start 01/14/18 at 04:15; Stop 01/14/18 at 04:16; Status DC Albuterol Sulfate (Albuterol Neb) 2.5 mg Q4HR WHILE AWAKE NEB NEB Last administered on 01/15/18at 11:32; Start 01/14/18 at 08:00 Albuterol Sulfate (Albuterol Neb) 2.5 mg Q2HR NEB PRN NEB SOB/WHEEZING; Start 01/14/18 at 04:30 Methylprednisolone Sodium Succinate (SoluMEDROL INJ) 40 mg Q6HR IV PUSH Last administered on 01/14/18at 05:40; Start 01/14/18 at 06:00; Stop 01/14/18 at 11:33 ; Status DC Budesonide/ Formoterol Fumarate (Symbicort 160-4.5 Mcg Inh) 2 puff Q12HR INH Last administered on 01/15/18at 09:05; Start 01/14/18 at 09:00 Ceftriaxone Sodium 1000 mg/ Sodium Chloride 100 ml @ 200 mls/hr Q24H IV Last administered on 01/14/18 21:25; Start 01/14/18 at 22:00 Azithromycin 500 mg/Sodium Chloride 250 ml @ 250 mls/hr Q24H IV Last administered on 01/14/18at 22:31; Start 01/14/18 at 23:00 Sodium Chloride (NS Flush) 2 ml UNSCH PRN IV FLUSH FLUSH AFTER USING IV ACCESS ; Start 01/14/18 at 04:30 Sodium Chloride (NS Flush) 2 ml BID IV FLUSH Last administered on 01/15/18at 09: 06; Start 01/14/18 at 09:00 Ondansetron HCl (Zofran Inj) 4 mg Q6H PRN IVP NAUSEA OR VOMITING; Start at 04:30 Acetaminophen (Tylenol) 650 mg Q6H PRN PO FEVER/PAIN SCALE 1 TO 2; Start at 04:30 Acetaminophen/ Hydrocodone Bitart ([place] 5-325 Mg) 1 tab Q4H PRN PO PAIN SCALE 3 TO 5; Start 01/14/18 at 04:30 Acetaminophen/ Hydrocodone Bitart ([place] 10-325 Mg) 1 tab Q4H PRN PO PAIN SCALE 6 TO 10; Start 01/14/18 at 04:30 Senna/Docusate Sodium (Loly-Colace) 1 tab BID PO Last administered on at 09:05; Start 01/14/18 at 09:00 Magnesium Hydroxide (Milk Of Magnesia Liq) 30 ml Q12H PRN PO Mild constipation ; Start 01/14/18 at 04:30 Sennosides (Senokot) 17.2 mg Q12H PRN PO Moderate constipation; Start 01/14/18 at 04:30 Bisacodyl (Dulcolax Supp) 10 mg DAILY PRN RECTAL SEVERE CONSITIPATION/ IF NPO ; Start 01/14/18 at 04:30 Lactulose (Lactulose Liq) 30 ml DAILY PRN PO SEVERE CONSITIPATION/ IF PO; Start 01/14/18 at 04:30 Potassium Chloride (KCl) 20 meq ONCE ONCE PO Last administered on 01/14/18at 08 :19; Start 01/14/18 at 07:45; Stop 01/14/18 at 07:51; Status DC Prednisone (Deltasone) 20 mg DAILY PO Last administered on 01/15/18at 09:05; Start 01/14/18 at 12:00 Guaifenesin (Mucinex Er) 1,200 mg BID PO ; Start 01/15/18 at 12:00 A/P Problem List: (1) PNA (pneumonia) ICD Code: J18.9 - Pneumonia, unspecified organism (2) Asthma ICD Code: J45.909 - Unspecified asthma, uncomplicated (3) Hypokalemia ICD Code: E87.6 - Hypokalemia (4) Tobacco abuse ICD Code: Z72.0 - Tobacco use Assessment and Plan 1. PNA with possible sepsis: +productive cough w/ green-colored sputum, congestion, CT Abd/Pelvis w/ dense consolidation lower right lung and patchy infiltrate LLL, images reviewed by me. S/p Rocephin/Zithro in ER, will continue w/ IV Abx. Check Sputum and blood Culture. HIV testing--HIV testing is negative 2. Asthma: w/ Acute Exacerbation. Severe. +SOB/wheezing on arrival, minimal improvement w/ home nebulizers, second ER visit for same, Albuterol q4h and q2h prn, Symbicort, Mucinex. Improved switch to p.o. will need oral steroids 3. Hypokalemia: K+ 3.0, s/p replacement, will recheck labs in am, replace as needed. Check Mg-we will replace again 4. Tobacco Abuse: quit since sick, NicoDerm prn if needed for withdrawal. 5. DVT Prophylaxis: SCD/Teds We will get a.m. labs Increase activity Jose Carlos Blackmon DO Jan 15, 2018 12:43
[2018-01-15] MEDS: guaiFENesin E.R. 600 MG TAB PO SCH ×2 (12:46→22:04)
[2018-01-15] MEDS ORDERED: POTASSIUM CHLORIDE 20 MEQ CONTROLLED RELEASE TAB PO ONE (14:00)
[2018-01-15] MEDS: MAGNESIUM SULFATE 1 GM PREMIX 100 ML IV SCH ×2 (14:36→15:59)
[2018-01-15] MEDS: cefTRIAXone INJ 1,000 MG in SODIUM CHLORIDE 0.9% INJ 100 ML IV SCH (22:05)
[2018-01-15] MEDS: RESP: ALBUTEROL 2.5 MG/3 ML NEB (PRN) NEB (22:32)
[2018-01-15] MEDS: AZITHROMYCIN INJ 500 MG in SODIUM CHLOR 0.9% 250 ML INJ 250 ML IV SCH (22:44)
[2018-01-16] VITALS: BP 120/52; PULSE 80; RESP 18; TEMP 97.4; O2SAT 99
[2018-01-16 01:59] VITALS: O2SAT 91
[2018-01-16] MEDS: RESP: ALBUTEROL 2.5 MG/3 ML NEB (PRN) NEB (01:59)
[2018-01-16 04:00] VITALS: BP 138/78; PULSE 70; RESP 18; TEMP 97.9; O2SAT 97
[2018-01-16 07:02] LABS: AUTOMATED NEUTROPHIL # 4.4 TH/MM3 (1.8-7.7); BASOPHIL % 0.4 % (0.0-2.0); EOSINOPHIL # 0.1 TH/MM3 (0-0.4); EOSINOPHIL % 0.8 % (0.0-4.0); HEMATOCRIT 33.2 % (35.0-46.0); HEMOGLOBIN 11.3 GM/DL (11.6-15.3); LYMPH % 30.5 % (9.0-44.0); LYMPHOCYTE # 2.2 TH/MM3 (1.0-4.8); MEAN CELL VOLUME 102.3 FL (80.0-100.0); MEAN CORPUSCULAR HEMOGLOBIN 34.6 PG (27.0-34.0); MEAN CORPUSCULAR HGB CONC 33.9 % (32.0-36.0); MEAN PLATELET VOLUME 11.2 FL (7.0-11.0); MONO % 7.6 % (0.0-8.0); MONOCYTE # 0.5 TH/MM3 (0-0.9); NEUT % 60.7 % (16.0-70.0); PLATELET COUNT 157 TH/MM3 (150-450); RED BLOOD COUNT 3.25 MIL/MM3 (4.00-5.30); RED CELL DISTRIBUTION WIDTH 12.6 % (11.6-17.2); WHITE BLOOD COUNT 7.2 TH/MM3 (4.0-11.0)
[2018-01-16 07:06] LABS: ALBUMIN 2.6 GM/DL (3.4-5.0); AST (GOT) 36 U/L (15-37); BICARBONATE 21.2 MEQ/L (21.0-32.0); BLOOD UREA NITROGEN 6 MG/DL (7-18); CALCIUM 8.5 MG/DL (8.5-10.1); CHLORIDE 113 MEQ/L (98-107); GLOMERULAR FILTRATION RATE 145 ML/MIN (>89); GLUCOSE,RANDOM 79 MG/DL (74-106); MAGNESIUM 2.4 MG/DL (1.5-2.5); SODIUM (NA) 143 MEQ/L (136-145)
[2018-01-16 07:18] LABS: ALKALINE PHOSPHATASE 67 U/L (45-117); ALT (GPT) 52 U/L (10-53); FREE T4 1.05 NG/DL (0.76-1.46); PHOSPHORUS 3.2 MG/DL (2.5-4.9); TOTAL BILIRUBIN ADULT 0.3 MG/DL (0.2-1.0); TOTAL PROTEIN 6.4 GM/DL (6.4-8.2)
[2018-01-16 07:35] VITALS: BP 127/91; PULSE 88; RESP 20; TEMP 98.1; O2SAT 95
[2018-01-16] MEDS: RESP: ALBUTEROL 2.5 MG/3 ML NEB (SCH) NEB ×3 (08:19→15:01)
[2018-01-16] MEDS: BUDESONIDE-FORMOTEROL 160/4.5 MCG INHALER INH SCH (09:15)
[2018-01-16] MEDS: guaiFENesin E.R. 600 MG TAB PO SCH (09:15)
[2018-01-16] MEDS: DOCUSATE SODIUM 50 MG/SENNA 8.6 MG TAB PO SCH (09:15)
[2018-01-16] MEDS: SODIUM CHLORIDE 0.9% FLUSH 10 ML FLUSH IV FLUSH SCH (09:16)
[2018-01-16] MEDS: predniSONE 20 MG TAB PO SCH (09:16)
[2018-01-16 09:34] VITALS: PULSE 84; O2SAT 96
--- NOTE | 2018-01-16 11:34 | HHI.PR ---
Subjective Remarks This is a 32-year-old female with a PMH of Asthma and Tobacco Abuse who presented to the ER with complaints of SOB in addition to productive cough w/ green-colored sputum and nausea/vomiting. Seen in ER on 01/11/18 for similar complaints, noted to have Temp 102.6, however no leukocytosis and CXR w/o acute findings, was d/c'd home w/ Zofran prn. Returns now w/ ongoing SOB and cough in addition to RUQ pain. Denies diarrhea, but reports generalized malaise and myalgias. On arrival, BP 172/83, HR 115, O2 sat 96% on RA, Temp 100.6. CBC at baseline. Chemistry unremarkable except for K+ 3.0. CT Abdomen/Pelvis with dense consolidation medial lower right lung and patchy non-consolidative infiltrate left lower lobe. S/p Solu-Medrol, DuoNeb, Rocephin/Zithro in ER w/ some improvement. 4- F/U PNA and asthma exac. States she is improving but still coughing. Agrees with HIV testing patient has been counseled discussed with nursing 01-15 CONTINUE ANTIBIOTICS AND BREATHING TREATMENTS HIV test is negative A.m. labs Replace potassium and magnesium Discussed with patient and RN and case management 5- BREATHING BETTER WANTS TO GO HOME DW RN AND PT AND CM CM FOR HELP WITH MEDICATIONS DC TO HOME TODAY Objective Vitals Vital Signs Date Time Temp Pulse Resp B/P (MAP) Pulse Ox O2 Delivery O2 Flow Rate FiO2 01/16/18 09:34 84 96 01/16/18 08:00 Room Air 01/16/18 07:35 98.1 88 20 127/91 (103) 95 01/16/18 04:00 97.9 70 18 138/78 (98) 97 01/16/18 04:00 97.9 70 18 138/78 (98) 97 01/16/18 01:59 91 21 01/16/18 00:00 97.4 80 18 120/52 (74) 99 01/15/18 20:10 98 21 01/15/18 20:00 97.6 82 18 121/54 (76) 98 01/15/18 20:00 Room Air 01/15/18 15:35 97.9 81 18 137/77 (97) 97 01/15/18 11:35 98.0 85 18 122/73 (89) 96 I/O 01/15/18 01/15/18 01/15/18 01/16/18 01/16/18 01/16/18 07:00 15:00 23:00 07:00 15:00 23:00 Intake Total 250 ml 840 ml Balance 250 ml 840 ml Intake Oral 840 ml IV Total 250 ml # Voids 2 3 1 # Bowel Movements 0 Result Diagram: 01/16/18 0500 01/16/18 0500 Other Results Laboratory Tests Test 01/14/18 02:29 01/14/18 02:42 01/14/18 05:00 01/14/18 12:40 Red Blood Count 3.85 MIL/MM3 (4.00-5.30) Mean Corpuscular Hemoglobin 35.1 PG (27.0-34.0) Platelet Count 138 TH/MM3 (150-450) Neutrophils (%) (Auto) 78.5 % (16.0-70.0) Monocytes (%) (Auto) 10.0 % (0.0-8.0) Lymphocytes # (Auto) 0.7 TH/MM3 (1.0-4.8) Blood Urea Nitrogen 2 MG/DL (7-18) Random Glucose 110 MG/DL (74-106) Albumin 3.2 GM/DL (3.4-5.0) Potassium Level 3.0 MEQ/L (3.5-5.1) Urine Ketones 10 mg/dL (NEG) Urine Occult Blood LARGE (NEG) Test 01/15/18 07:48 01/16/18 05:00 Albumin 2.7 GM/DL (3.4-5.0) 2.6 GM/DL (3.4-5.0) Potassium Level 3.4 MEQ/L (3.5-5.1) Chloride Level 112 MEQ/L (98-107) 113 MEQ/L (98-107) Red Blood Count 3.25 MIL/MM3 (4.00-5.30) Hemoglobin 11.3 GM/DL (11.6-15.3) Hematocrit 33.2 % (35.0-46.0) Mean Corpuscular Volume 102.3 FL (80.0-100.0) Mean Corpuscular Hemoglobin 34.6 PG (27.0-34.0) Mean Platelet Volume 11.2 FL (7.0-11.0) Blood Urea Nitrogen 6 MG/DL (7-18) Imaging Last Impressions Abdomen/Pelvis CT 01/14/18 0225 Signed Impressions: Service Date/Time: Sunday, January 14, 2018 02:47 - CONCLUSION: 1. Dense consolidation in the medial lower right lung in contact with the medial hemidiaphragm. 2. Patchy areas of non-consolidative infiltrate in the left lower lobe. 3. 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 Lowell Valdes MD Objective Remarks GENERAL: Awake alert and oriented 3 talkative and cooperative SKIN: Warm and dry. HEAD: Atraumatic. Normocephalic. EYES: Pupils equal and round. No scleral icterus. No injection or drainage. Extraocular muscles intact ENT: No nasal bleeding or discharge. Mucous membranes pink and moist. Tongue is midline NECK: Trachea midline. No JVD. Supple CARDIOVASCULAR: Regular rate and rhythm. S1-S2 no S3 or S4 RESPIRATORY: Rhonchi and wheezes throughout all lung scott breath sounds equal bilaterally. GASTROINTESTINAL: Abdomen soft, non-tender, nondistended. Hepatic and splenic margins not palpable. MUSCULOSKELETAL: Extremities without clubbing, cyanosis, or edema. No obvious deformities. NEUROLOGICAL: Awake and alert. No obvious cranial nerve deficits. Motor grossly within normal limits. Five out of 5 muscle strength in the arms and legs. Normal speech. PSYCHIATRIC: Appropriate mood and affect; insight and judgment normal. Procedures none Medications and IVs Current Medications Morphine Sulfate (Morphine Inj) 4 mg ONCE ONCE IV PUSH Last administered on at 02:57; Start 01/14/18 at 02:30; Stop 01/14/18 at 02:31; Status DC Ondansetron HCl (Zofran Inj) 4 mg ONCE ONCE IVP Last administered on at 02:57; Start 01/14/18 at 02:30; Stop 01/14/18 at 02:31; Status DC Sodium Chloride 1,000 ml @ 1,000 mls/hr Q1H IV Last administered on 01/14/18at 02:56; Start 01/14/18 at 02:25; Stop 01/14/18 at 03:24; Status DC Sodium Chloride (NS Flush) 2 ml UNSCH PRN IV FLUSH FLUSH AFTER USING IV ACCESS ; Start 01/14/18 at 02:30; Stop 01/14/18 at 04:29; Status DC Famotidine (Pepcid Inj) 20 mg ONCE ONCE IV PUSH Last administered on at 02:57; Start 01/14/18 at 02:30; Stop 01/14/18 at 02:31; Status DC Methylprednisolone Sodium Succinate (SoluMEDROL INJ) 125 mg ONCE ONCE IV PUSH Last administered on 01/14/18at 02:57; Start 01/14/18 at 02:30; Stop 01/14/18 at 02:31; Status DC Diphenhydramine HCl (Benadryl Inj) 25 mg ONCE ONCE IV PUSH Last administered on 01/14/18at 02:56; Start 01/14/18 at 02:30; Stop 01/14/18 at 02:31; Status DC Iohexol (Omnipaque 350 Inj) 97 ml STK-MED ONCE IVCONTRAST Last administered on 01/14/18at 02:50; Start 01/14/18 at 02:50; Stop 01/14/18 at 02:51; Status DC Albuterol/ Ipratropium (Duoneb Neb) 1 ampule ONCE ONCE NEB Last administered on 01/14/18at 03:00; Start 01/14/18 at 03:00; Stop 01/14/18 at 03:01; Status DC Albuterol/ Ipratropium (Duoneb Neb) 2 ampule ONCE ONCE NEB Last administered on 01/14/18at 03:58; Start 01/14/18 at 03:15; Stop 01/14/18 at 03:16; Status DC Azithromycin 500 mg/Sodium Chloride 250 ml @ 250 mls/hr ONCE ONCE IV Last administered on 01/14/18at 03:36; Start 01/14/18 at 03:15; Stop 01/14/18 at 04:14 ; Status DC Potassium Chloride (KCl) 40 meq ONCE ONCE PO Last administered on 01/14/18at 04 :33; Start 01/14/18 at 04:15; Stop 01/14/18 at 04:16; Status DC Albuterol Sulfate (Albuterol Neb) 2.5 mg Q4HR WHILE AWAKE NEB NEB Last administered on 01/16/18at 08:19; Start 01/14/18 at 08:00 Albuterol Sulfate (Albuterol Neb) 2.5 mg Q2HR NEB PRN NEB SOB/WHEEZING Last administered on 01/16/18at 01:59; Start 01/14/18 at 04:30 Methylprednisolone Sodium Succinate (SoluMEDROL INJ) 40 mg Q6HR IV PUSH Last administered on 01/14/18at 05:40; Start 01/14/18 at 06:00; Stop 01/14/18 at 11:33 ; Status DC Budesonide/ Formoterol Fumarate (Symbicort 160-4.5 Mcg Inh) 2 puff Q12HR INH Last administered on 01/16/18at 09:15; Start 01/14/18 at 09:00 Ceftriaxone Sodium 1000 mg/ Sodium Chloride 100 ml @ 200 mls/hr Q24H IV Last administered on 01/15/18at 22:05; Start 01/14/18 at 22:00 Azithromycin 500 mg/Sodium Chloride 250 ml @ 250 mls/hr Q24H IV Last administered on 01/15/18at 22:44; Start 01/14/18 at 23:00 Sodium Chloride (NS Flush) 2 ml UNSCH PRN IV FLUSH FLUSH AFTER USING IV ACCESS ; Start 01/14/18 at 04:30 Sodium Chloride (NS Flush) 2 ml BID IV FLUSH Last administered on 01/16/18at 09: 16; Start 01/14/18 at 09:00 Ondansetron HCl (Zofran Inj) 4 mg Q6H PRN IVP NAUSEA OR VOMITING; Start at 04:30 Acetaminophen (Tylenol) 650 mg Q6H PRN PO FEVER/PAIN SCALE 1 TO 2; Start at 04:30 Acetaminophen/ Hydrocodone Bitart ([place] 5-325 Mg) 1 tab Q4H PRN PO PAIN SCALE 3 TO 5; Start 01/14/18 at 04:30 Acetaminophen/ Hydrocodone Bitart ([place] 10-325 Mg) 1 tab Q4H PRN PO PAIN SCALE 6 TO 10; Start 01/14/18 at 04:30 Senna/Docusate Sodium (Loly-Colace) 1 tab BID PO Last administered on 01/16/18at 09:15; Start 01/14/18 at 09:00 Magnesium Hydroxide (Milk Of Magnesia Liq) 30 ml Q12H PRN PO Mild constipation ; Start 01/14/18 at 04:30 Sennosides (Senokot) 17.2 mg Q12H PRN PO Moderate constipation; Start 01/14/18 at 04:30 Bisacodyl (Dulcolax Supp) 10 mg DAILY PRN RECTAL SEVERE CONSITIPATION/ IF NPO ; Start 01/14/18 at 04:30 Lactulose (Lactulose Liq) 30 ml DAILY PRN PO SEVERE CONSITIPATION/ IF PO; Start 01/14/18 at 04:30 Potassium Chloride (KCl) 20 meq ONCE ONCE PO Last administered on 01/14/18at 08 :19; Start 01/14/18 at 07:45; Stop 01/14/18 at 07:51; Status DC Prednisone (Deltasone) 20 mg DAILY PO Last administered on 01/16/18at 09:16; Start 01/14/18 at 12:00 Guaifenesin (Mucinex Er) 1,200 mg BID PO Last administered on 01/16/18at 09:15; Start 01/15/18 at 12:00 Magnesium Sulfate/ Dextrose 100 ml @ 100 mls/hr Q1H IV Last administered on at 15:59; Start 01/15/18 at 14:00; Stop 01/15/18 at 15:59; Status DC Potassium Chloride (KCl) 80 meq ONCE ONCE PO Last administered on 01/15/18at 14 :36; Start 01/15/18 at 14:00; Stop 01/15/18 at 14:01; Status DC A/P Problem List: (1) PNA (pneumonia) ICD Code: J18.9 - Pneumonia, unspecified organism (2) Asthma ICD Code: J45.909 - Unspecified asthma, uncomplicated (3) Hypokalemia ICD Code: E87.6 - Hypokalemia (4) Tobacco abuse ICD Code: Z72.0 - Tobacco use Assessment and Plan 1. PNA with possible sepsis: +productive cough w/ green-colored sputum, congestion, CT Abd/Pelvis w/ dense consolidation lower right lung and patchy infiltrate LLL, images reviewed by me. S/p Rocephin/Zithro in ER, will continue w/ IV Abx. Check Sputum and blood Culture. HIV testing--HIV testing is negative 2. Asthma: w/ Acute Exacerbation. Severe. +SOB/wheezing on arrival, minimal improvement w/ home nebulizers, second ER visit for same, Albuterol q4h and q2h prn, Symbicort, Mucinex. Improved switch to p.o. will need oral steroids 3. Hypokalemia: K+ 3.0, s/p replacement, will recheck labs in am, replace as needed. Check Mg-we will replace again 4. Tobacco Abuse: quit since sick, NicoDerm prn if needed for withdrawal. 5. DVT Prophylaxis: SCD/Teds We will get a.m. labs Increase activity DC TO HOME ON PO MEDICATIONS AND PO MEDS DW RN AND PT AND CM Discharge Planning DC TO HOME TODAY Jose Carlos Blackmon DO January 16, 2018 11:34
[2018-01-16 11:35] VITALS: BP 142/85; PULSE 91; RESP 20; TEMP 98.2; O2SAT 98
[2018-01-16] MEDS ORDERED: guaiFENesin ER PO (11:37)
[2018-01-16] MEDS ORDERED: VENTAER INH (11:39)
[2018-01-16] MEDS ORDERED: NICO14DI T-DERMAL (11:40)
[2018-01-16] MEDS ORDERED: PRED10PA PO (11:43)
--- NOTE | 2018-01-16 11:43 | HHI.DS ---
Discharge Summary Admission Date Jan 14, 2018 at 04:21 Discharge Date: January 16, 2018 Admitting Diagnosis Bilateral pneumonia, nausea/vomiting (1) PNA (pneumonia) ICD Code: J18.9 - Pneumonia, unspecified organism Diagnosis: Principal (2) Asthma ICD Code: J45.909 - Unspecified asthma, uncomplicated Diagnosis: Principal (3) Hypokalemia ICD Code: E87.6 - Hypokalemia Diagnosis: Secondary (4) Tobacco abuse ICD Code: Z72.0 - Tobacco use Procedures none Brief History - From Admission This is a 32-year-old female with a PMH of Asthma and Tobacco Abuse who presented to the ER with complaints of SOB in addition to productive cough w/ green-colored sputum and nausea/vomiting. Seen in ER on 01/11/18 for similar complaints, noted to have Temp 102.6, however no leukocytosis and CXR w/o acute findings, was d/c'd home w/ Zofran prn. Returns now w/ ongoing SOB and cough in addition to RUQ pain. Denies diarrhea, but reports generalized malaise and myalgias. On arrival, BP 172/83, HR 115, O2 sat 96% on RA, Temp 100.6. CBC at baseline. Chemistry unremarkable except for K+ 3.0. CT Abdomen/Pelvis with dense consolidation medial lower right lung and patchy non-consolidative infiltrate left lower lobe. S/p Solu-Medrol, DuoNeb, Rocephin/Zithro in ER w/ some improvement. CBC/BMP: 01/16/18 0500 01/16/18 0500 Significant Findings Laboratory Tests Test 01/14/18 02:29 01/14/18 02:42 01/14/18 05:00 01/14/18 12:40 Red Blood Count 3.85 MIL/MM3 (4.00-5.30) Mean Corpuscular Hemoglobin 35.1 PG (27.0-34.0) Platelet Count 138 TH/MM3 (150-450) Neutrophils (%) (Auto) 78.5 % (16.0-70.0) Monocytes (%) (Auto) 10.0 % (0.0-8.0) Lymphocytes # (Auto) 0.7 TH/MM3 (1.0-4.8) Blood Urea Nitrogen 2 MG/DL (7-18) Random Glucose 110 MG/DL (74-106) Albumin 3.2 GM/DL (3.4-5.0) Potassium Level 3.0 MEQ/L (3.5-5.1) Urine Ketones 10 mg/dL (NEG) Urine Occult Blood LARGE (NEG) Test 01/15/18 07:48 01/16/18 05:00 Albumin 2.7 GM/DL (3.4-5.0) 2.6 GM/DL (3.4-5.0) Potassium Level 3.4 MEQ/L (3.5-5.1) Chloride Level 112 MEQ/L (98-107) 113 MEQ/L (98-107) Red Blood Count 3.25 MIL/MM3 (4.00-5.30) Hemoglobin 11.3 GM/DL (11.6-15.3) Hematocrit 33.2 % (35.0-46.0) Mean Corpuscular Volume 102.3 FL (80.0-100.0) Mean Corpuscular Hemoglobin 34.6 PG (27.0-34.0) Mean Platelet Volume 11.2 FL (7.0-11.0) Blood Urea Nitrogen 6 MG/DL (7-18) Imaging Last Impressions Abdomen/Pelvis CT 01/14/18 0225 Signed Impressions: Service Date/Time: Sunday, January 14, 2018 02:47 - CONCLUSION: 1. Dense consolidation in the medial lower right lung in contact with the medial hemidiaphragm. 2. Patchy areas of non-consolidative infiltrate in the left lower lobe. 3. 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 Lowell Valdes MD PE at Discharge GENERAL: Awake alert and oriented 3 talkative and cooperative SKIN: Warm and dry. HEAD: Atraumatic. Normocephalic. EYES: Pupils equal and round. No scleral icterus. No injection or drainage. Extraocular muscles intact ENT: No nasal bleeding or discharge. Mucous membranes pink and moist. Tongue is midline NECK: Trachea midline. No JVD. Supple CARDIOVASCULAR: Regular rate and rhythm. S1-S2 no S3 or S4 RESPIRATORY: Rhonchi and wheezes throughout all lung scott breath sounds equal bilaterally. GASTROINTESTINAL: Abdomen soft, non-tender, nondistended. Hepatic and splenic margins not palpable. MUSCULOSKELETAL: Extremities without clubbing, cyanosis, or edema. No obvious deformities. NEUROLOGICAL: Awake and alert. No obvious cranial nerve deficits. Motor grossly within normal limits. Five out of 5 muscle strength in the arms and legs. Normal speech. PSYCHIATRIC: Appropriate mood and affect; insight and judgment normal. Hospital Course This is a 32-year-old female with a PMH of Asthma and Tobacco Abuse who presented to the ER with complaints of SOB in addition to productive cough w/ green-colored sputum and nausea/vomiting. Seen in ER on 01/11/18 for similar complaints, noted to have Temp 102.6, however no leukocytosis and CXR w/o acute findings, was d/c'd home w/ Zofran prn. Returns now w/ ongoing SOB and cough in addition to RUQ pain. Denies diarrhea, but reports generalized malaise and myalgias. On arrival, BP 172/83, HR 115, O2 sat 96% on RA, Temp 100.6. CBC at baseline. Chemistry unremarkable except for K+ 3.0. CT Abdomen/Pelvis with dense consolidation medial lower right lung and patchy non-consolidative infiltrate left lower lobe. S/p Solu-Medrol, DuoNeb, Rocephin/Zithro in ER w/ some improvement. 4-29 F/U PNA and asthma exac. States she is improving but still coughing. Agrees with HIV testing patient has been counseled discussed with nursing 4-30 CONTINUE ANTIBIOTICS AND BREATHING TREATMENTS HIV test is negative A.m. labs Replace potassium and magnesium Discussed with patient and RN and case management 5-1 BREATHING BETTER WANTS TO GO HOME DW RN AND PT AND CM CM FOR HELP WITH MEDICATIONS DC TO HOME TODAY Pt Condition on Discharge: Good Discharge Disposition: Discharge Home Discharge Time: > 30 minutes Discharge Instructions DIET: Follow Instructions for: Heart Healthy Diet Speech Therapy-Diet Recommends: Regular Activities you can perform: Regular-No Restrictions Other Activity Instructions: STOP SMOKING Follow up Referrals: PCP Follow-up - 1 Week New Medications: Albuterol 18 GM Inh (Ventolin Hfa 18 GM Inh) 90 Mcg/Act Aer 2 PUFF INH Q4-6H PRN for SHORTNESS OF BREATH, #1 INHALER 0 Refills Azithromycin (Zithromax) 250 Mg Tab 250 MG PO DAILY for Infection, #3 TAB 0 Refills dc 5/2 Cefuroxime (Ceftin) 250 Mg Tab 500 MG PO BID for Infection, #20 TAB dc 5/5 Nicotine Patch (Nicotine Patch) 14 Mg/24 Hr Patch 14 MG T-DERMAL DAILY for Smoking Cessation, #30 PATCH 0 Refills Prednisone (21) 10 mg tab Dose Pack (Prednisone (21) 10 mg tab Dose Pack) 10 Mg Pack 10 MG PO DIRECTED for Inflammation, #1 DSPK 0 Refills TAKE WITH FOOD [Budeson-Formot 160-4.5 Mcg Inh] () 60 PUFF AERO 2 PUFF INH Q12HR for Asthma Management, #1 PUFF [guaiFENesin ER] () 600 MG TABCR 1200 MG PO BID for Cough, #120 TAB Continued Medications: Albuterol 18 GM Inh (Ventolin Hfa 18 GM Inh) 90 Mcg/Act Aer 2 PUFF INH Q4-6H PRN for SHORTNESS OF BREATH, #1 INHALER 0 Refills Ondansetron (Zofran) 4 Mg Tab 4 MG PO Q6HR PRN for NAUSEA OR VOMITING, #20 TAB 0 Refills Jose Carlos Blackmon DO January 16, 2018 11:43
[2018-01-16 19:00] LABS: HEMOGLOBIN A1C 4.9 % (4.3-6.0)
== END 2018-01-16 16:11 | disposition home or self-care (01) | DRG 194 ==
LOC: NEPE 01:35 → NEDA 04:21 → N04B 05:29
PROVIDERS: ADMIT Hospitalist; ATTEND Hospitalist
DX: J18.9 Pneumonia, unspecified organism (principal); J45.901 Unspecified asthma with (acute) exacerbation; E87.6 Hypokalemia; Z72.0 Tobacco use
CPT/HCPCS: 74177; 80053; 81001; 83036; 83605; 83690; 83735; 84100; 84439; 84443; 85025; 86703; 87040; 87070; 87205; 94150; 94640; 94664; 96361; 96365; 96375; J0456; J0696; J1200; J2270; J2405; J2920; J2930; J3475; J7030; J7050; J7512; J7613; Q9967